=== PATIENT | female | born 1990 | race Caucasian/White ===

== ENCOUNTER 2018-04-18 21:44 | Observation (INO) | payer OTHER ==
[2018-04-18] MEDS ORDERED: Sodium Chloride 0.9% 1000 ML 1,000 ML IV STA (22:12)
[2018-04-18] MEDS ORDERED: MORPHINE SULFATE 4 MG INJ IV ONE (22:12)
[2018-04-18] MEDS ORDERED: Zofran 4 MG/2 ML VIAL IV ONE (22:12)
[2018-04-18] MEDS ORDERED: Zofran 4 MG/2 ML VIAL ONE (22:17)
[2018-04-18] MEDS ORDERED: MORPHINE SULFATE 4 MG INJ ONE (22:17)
[2018-04-18] MEDS ORDERED: Sodium Chloride 0.9% 1000 ML 1,000 ML ONE (22:17)
--- NOTE | 2018-04-18 22:17 | ERPHSYRPT ---
- History of Present Illness Time Seen by Provider: 04/18/18 22:08 Historian: patient Exam Limitations: no limitations Patient Subjective Stated Complaint: right lower abdominal quadrant pain Triage Nursing Assessment: Pt c/o of right lower quadrant pain, pain for past couple of days and today has hurt more and rates the pain an 8/10, tender to palpation, gave 01/09/2018, doesn't appear to be in any distress Physician History: 27-year-old white female arrives with complaint of right lower quadrant pain. She states she began with suprapubic abdominal pain 2 days ago and then today it is moved over to the right side she states she has some nausea some diarrhea she has no vomiting no urinary symptoms. Past medical history includes preeclampsia depression Social history patient admits to tobacco use she denies illicit drug use or alcohol use Timing/Duration: day(s) (2 days) Activities at Onset: none Quality: cramping Abdominal Pain Onset Location: RLQ Pain Radiation: no radiation Severity of Pain-Max: moderate Severity of Pain-Current: moderate Modifying Factors: Improves With: nothing Associated Symptoms: diarrhea, nausea, No back, No chest pain, No diaphoresis, No fever/chills, No fatigue, No headache, No heartburn, No loss of appetite, No neck pain, No rash, No shortness of breath, No syncope, No vomiting, No weakness Previous symptoms: no prior history Allergies/Adverse Reactions: ibuprofen Allergy (Verified 04/18/18 22:06) Home Medications: No Reportable Medications [No Reported Medications] 04/18/18 [History] - Review of Systems Constitutional: No Fever, No Chills Eyes: No Symptoms Ears, Nose, & Throat: No Symptoms Respiratory: No Cough, No Dyspnea Cardiac: No Chest Pain, No Edema, No Syncope Abdominal/Gastrointestinal: Abdominal Pain, Nausea, No Vomiting, No Diarrhea, No Constipation, No Hematemesis, No Hematochezia, No Melena, No Dysphagia, No Appetite Changes Genitourinary Symptoms: No Dysuria Musculoskeletal: No Back Pain, No Neck Pain Skin: No Rash Neurological: No Dizziness, No Focal Weakness, No Sensory Changes Psychological: No Symptoms Endocrine: No Symptoms All Other Systems: Reviewed and Negative - Past Medical History Pertinent Past Medical History: Yes Other Medical History: preeclampsia after giving 3 months ago-01/09/2018 - Past Surgical History Past Surgical History: No - Social History Smoking Status: Current every day smoker How long have you smoked: 7 years Drug Use: none Patient Lives Alone: No - Female History Hx Last Menstrual Period: 11/14/2017 Hx Now: No - Nursing Vital Signs Nursing Vital Signs: Initial Vital Signs Temperature 97.5 F 04/18/18 21:53 Pulse Rate 90 04/18/18 21:53 Blood Pressure 123/89 04/18/18 21:53 O2 Sat by Pulse Oximetry 97 04/18/18 21:53 Pain Scale Pain Intensity 5 - Physical Exam General Appearance: no apparent distress, alert, obese Eye Exam: PERRL/EOMI, eyes nml inspection Ears, Nose, Throat Exam: normal ENT inspection, pharynx normal, moist mucous membranes Neck Exam: normal inspection, non-tender, supple, full range of motion Respiratory Exam: normal breath sounds, lungs clear, No respiratory distress Cardiovascular Exam: regular rate/rhythm, normal heart sounds Gastrointestinal/Abdomen Exam: soft, normal bowel sounds, tenderness (right lower quadrant abdominal tenderness), No distention, No mass, No guarding, No ecchymosis, No pulsatile mass, No rebound, No hernia, No hepatomegaly Back Exam: normal inspection, normal range of motion, No CVA tenderness, No vertebral tenderness Extremity Exam: normal inspection, normal range of motion, pelvis stable Neurologic Exam: alert, oriented x 3, cooperative, cobol developer II-XII nml as tested, normal mood/affect, nml cerebellar function, sensation nml, No motor deficits Skin Exam: normal color, warm, dry SpO2 Interpretation: normal (97%) SpO2: 97 Oxygen Delivery: Room Air - Course Nursing assessment & vital signs reviewed: Yes - CT Exams Abdomen/Pelvis CT Interpretation: Tele-radiologist Report (CT of the abdomen and pelvis: acute appendicitis without abscess) Ordered Tests: Active Orders 24 hr Category Date Time Status Bedrest with BRP/BSC ROUTINE Activity 04/19/18 01:48 Active Call Admit Doctor for Orders ON ADMISSION Care 04/19/18 01:48 Active Code Status Order ROUTINE Care 04/19/18 01:48 Active IV Care Q6H Care 04/19/18 01:48 Active IV Insertion STAT Care 04/18/18 22:[address] in Observation ROUTINE Care 04/19/18 01:48 Active Weight,Daily 0600 Care 04/19/18 01:48 Active NPO Diet 04/19/18 01:48 Active ABDOMEN AND PELVIS W CONTRAST [CT] Stat Exams 04/18/18 22:52 Taken AMYLASE Stat Lab 04/18/18 22:15 Completed CBC W DIFF AM.LAB Lab 04/19/18 04:00 Ordered CBC W DIFF Stat Lab 04/18/18 22:12 Completed CMP AM.LAB Lab 04/19/18 04:00 Ordered CMP Stat Lab 04/18/18 22:15 Completed HCG QUALITATIVE,SERUM Stat Lab 04/18/18 22:15 Completed LIPASE Stat Lab 04/18/18 22:15 Completed UA W/ MICROSCOPIC Stat Lab 04/18/18 22:34 Completed Pulse Oximetry CONTINUOUS RT 04/19/18 01:48 Active Transfer Order Routine Transfer 04/19/18 Completed Medication Summary Generic Name Dose Route Start Last Admin Trade Name Freq PRN Reason Stop Dose Admin Ampicillin Sodium/Sulbactam Sodium 3 gm in 100 mls @ 200 mls/hr 04/19/18 06: 00 Unasyn 3gm / Nacl 100ml IV 05/19/18 05:59 Q6HT SOLA Metronidazole 500 mg in 100 mls @ 200 mls/hr 04/19/18 06:00 Flagyl 500 Mg Ivpb IV 05/19/18 05:59 Q6HT SOLA Sodium Chloride 1,000 mls @ 100 mls/hr 04/19/18 01:48 Sodium Chloride 0.9% 1000 Ml IV 05/19/18 01:47 .Q10H SOLA Morphine Sulfate 4 mg 04/19/18 01:48 Morphine Sulfate 4 Mg Inj IV 04/24/18 01:47 Q4H PRN PRN PAIN Ondansetron HCl 4 mg 04/19/18 01:48 Zofran 4 Mg/2 Ml Vial IV 05/19/18 01:47 Q6H PRN PRN NAUSEA/VOMITING Discontinued Medications Generic Name Dose Route Start Last Admin Trade Name Freq PRN Reason Stop Dose Admin Sodium Chloride 1,000 mls @ 999 mls/hr 04/18/18 22:12 04/19/18 01:09 Sodium Chloride 0.9% 1000 Ml IV 04/18/18 23:12 Infused .Q1H1M STA Infusion Sodium Chloride Confirm 04/18/18 22:17 Sodium Chloride 0.9% 1000 Ml Administered 04/18/18 22:18 Dose 1,000 mls @ ud .ROUTE .STK-MED ONE Metronidazole 500 mg in 100 mls @ 200 mls/hr 04/19/18 00:58 04/19/18 01:42 Flagyl 500 Mg Ivpb IV 04/19/18 01:27 Infused STAT STA Infusion Ampicillin Sodium/Sulbactam Sodium 3 gm in 100 mls @ 200 mls/hr 04/19/18 00: 58 04/19/18 01:42 Unasyn 3gm / Nacl 100ml IV 04/19/18 01:27 200 mls/hr STAT STA 200 mls/hr Administration Metronidazole Confirm 04/19/18 01:02 Flagyl 500 Mg Ivpb Administered 04/19/18 01:03 Dose 500 mg in 100 mls @ ud IV .STK-MED ONE Ampicillin Sodium/Sulbactam Sodium Confirm 04/19/18 01:33 Unasyn 3gm / Nacl 100ml Administered 04/19/18 01:34 Dose 3 gm in 100 mls @ ud .ROUTE .STK-MED ONE Morphine Sulfate 4 mg 04/18/18 22:12 04/18/18 22:21 Morphine Sulfate 4 Mg Inj IV 04/18/18 22:13 4 mg STAT ONE Administration Morphine Sulfate Confirm 04/18/18 22:17 Morphine Sulfate 4 Mg Inj Administered 04/18/18 22:18 Dose 4 mg .ROUTE .STK-MED ONE Ondansetron HCl 4 mg 04/18/18 22:12 04/18/18 22:21 Zofran 4 Mg/2 Ml Vial IV 04/18/18 22:13 4 mg STAT ONE Administration Ondansetron HCl Confirm 04/18/18 22:17 Zofran 4 Mg/2 Ml Vial Administered 04/18/18 22:18 Dose 4 mg .ROUTE .STK-MED ONE Lab/Rad Data: Laboratory Result Diagrams 04/18/18 22:12 04/18/18 22:15 Laboratory Results 04/18/18 04/18/18 04/18/18 Range/Units 22:34 22:15 22:15 WBC (4.0-10.5) K/mm3 RBC (4.1-5.4) M/mm3 Hgb (12.0-16.0) gm/dl Hct (35-47) % MCV (78-100) fl MCH (26-32) pg MCHC (32-36) g/dl RDW (11.5-14.0) % Plt Count (150-450) K/mm3 MPV (6-9.5) fl Gran % (36.0-66.0) % Eos # (Auto) (0-0.5) Absolute Lymphs (auto) (1.0-4.6) Absolute Monos (auto) (0.0-1.3) Lymphocytes % (24.0-44.0) % Monocytes % (0.0-12.0) % Eosinophils % (0.00-5.0) % Basophils % (0.0-0.4) % Absolute Granulocytes (1.4-6.9) Basophils # (0-0.4) Sodium 141 (137-145) mmol/L Potassium 3.8 (3.5-5.1) mmol/L Chloride 106 (98-107) mmol/L Carbon Dioxide 27 (22-30) mmol/L Anion Gap 11.9 (5-15) MEQ/L BUN 13 (7-17) mg/dL Creatinine 0.81 (0.52-1.04) mg/dL Estimated GFR > 60.0 ML/MIN Glucose 99 (74-106) mg/dL Calcium 9.7 (8.4-10.2) mg/dL Total Bilirubin 0.20 (0.2-1.3) mg/dL AST 18 (14-36) U/L ALT 19 (0-35) U/L Alkaline Phosphatase 87 (38-126) U/L Serum Total Protein 7.4 (6.3-8.2) g/dL Albumin 4.2 (3.5-5.0) g/dL Amylase 43 (30-110) U/L Lipase 50 (23-300) U/L Serum , Qual NEGATIVE (Negative) Ur Collection Type VOID Urine Color YELLOW (YELLOW) Urine Appearance SLIGHTLY HAZY (CLEAR) Urine pH 50 (5-6) Ur Specific [place] 1.0154 (1.005-1.025) Urine Protein NEGATIVE (Negative) Urine Ketones NEGATIVE (NEGATIVE) Urine Blood 50 (0-5) Uriel/ul Urine Nitrite NEGATIVE (NEGATIVE) Urine Bilirubin NEGATIVE (NEGATIVE) Urine Urobilinogen NORMAL (0-1) mg/dL Ur Leukocyte Esterase NEGATIVE (NEGATIVE) Urine Microscopic RBC 10-15 (0-2) /HPF Ur Epithelial Cells FEW (FEW) /HPF Urine Culture Reflexed NO (NO) Urine Glucose NEGATIVE (NEGATIVE) mg/dL Specimen Received 04/18/18223404/18/18 Range/Units 22:12 WBC 11.0 H (4.0-10.5) K/mm3 RBC 3.92 L (4.1-5.4) M/mm3 Hgb 11.7 L (12.0-16.0) gm/dl Hct 35.1 (35-47) % MCV 89.5 (78-100) fl MCH 29.8 (26-32) pg MCHC 33.3 (32-36) g/dl RDW 13.0 (11.5-14.0) % Plt Count 337 (150-450) K/mm3 MPV 10.1 H (6-9.5) fl Gran % 71.4 H (36.0-66.0) % Eos # (Auto) 0.43 (0-0.5) Absolute Lymphs (auto) 2.09 (1.0-4.6) Absolute Monos (auto) 0.63 (0.0-1.3) Lymphocytes % 18.9 L (24.0-44.0) % Monocytes % 5.7 (0.0-12.0) % Eosinophils % 3.9 (0.00-5.0) % Basophils % 0.1 (0.0-0.4) % Absolute Granulocytes 7.87 H (1.4-6.9) Basophils # 0.01 (0-0.4) Sodium (137-145) mmol/L Potassium (3.5-5.1) mmol/L Chloride (98-107) mmol/L Carbon Dioxide (22-30) mmol/L Anion Gap (5-15) MEQ/L BUN (7-17) mg/dL Creatinine (0.52-1.04) mg/dL Estimated GFR ML/MIN Glucose (74-106) mg/dL Calcium (8.4-10.2) mg/dL Total Bilirubin (0.2-1.3) mg/dL AST (14-36) U/L ALT (0-35) U/L Alkaline Phosphatase (38-126) U/L Serum Total Protein (6.3-8.2) g/dL Albumin (3.5-5.0) g/dL Amylase (30-110) U/L Lipase (23-300) U/L Serum , Qual (Negative) Ur Collection Type Urine Color (YELLOW) Urine Appearance (CLEAR) Urine pH (5-6) Ur Specific [place] (1.005-1.025) Urine Protein (Negative) Urine Ketones (NEGATIVE) Urine Blood (0-5) Uriel/ul Urine Nitrite (NEGATIVE) Urine Bilirubin (NEGATIVE) Urine Urobilinogen (0-1) mg/dL Ur Leukocyte Esterase (NEGATIVE) Urine Microscopic RBC (0-2) /HPF Ur Epithelial Cells (FEW) /HPF Urine Culture Reflexed (NO) Urine Glucose (NEGATIVE) mg/dL Specimen Received - Progress Progress: improved Progress Note: 04/18/18 22:53 Patient improved with still right lower quadrant abdominal pain. White blood cell count is elevated. Will go ahead and obtain CT abdomen and pelvis to rule out appendicitis. 04/19/18 01:[address] of the abdomen and pelvis is remarkable for acute appendicitis without abscess the appendix is dilated to 11 mm with surrounding edema. I've discussed the patient's case with Dr. Arturo Whalen He requests that I go ahead and place the patient on observation provide IV antibiotics (Unasyn and Flagyl), will provide IV fluids and pain medications keep patient nothing by mouth. Dr. Whalen anticipates the patient will be seen by DR López. - Departure Time of Disposition: 01:02 Departure Disposition: Observation Clinical Impression: Right lower quadrant abdominal pain Acute appendicitis Qualifiers: Acute appendicitis type: unspecified acute appendicitis type Qualified Code(s) : K35.80 - Unspecified acute appendicitis Condition: Fair Critical Care Time: No
[2018-04-18 22:24] LABS: BASOPHIL % 0.1 % (0.0-0.4); Basophil (Absolute #) 0.01 (0-0.4); Eosinophil % 3.9 % (0.00-5.0); Eosinophil (Absolute #) 0.43 (0-0.5); Granulocyte Absolute (ANC) 7.87 (1.4-6.9); Granulocytes % 71.4 % (36.0-66.0); Hematocrit 35.1 % (35-47); Hemoglobin 11.7 gm/dl (12.0-16.0); Lymphocyte (Absolute #) 2.09 (1.0-4.6); Lymphocytes % 18.9 % (24.0-44.0); Mean Cell Volume 89.5 fl (78-100); Mean Corpuscular Hemoglobin 29.8 pg (26-32); Mean Corpuscular Hgb Concent. 33.3 g/dl (32-36); Mean Platelet Volume 10.1 fl (6-9.5); Monocyte (Absolute #) 0.63 (0.0-1.3); Monocytes % 5.7 % (0.0-12.0); Platelet Count 337 K/mm3 (150-450); Red Blood Count 3.92 M/mm3 (4.1-5.4)
[2018-04-18 22:40] LABS: Appearance SLIGHTLY HAZY (CLEAR); Bilirubin NEGATIVE (NEGATIVE); Blood 50 Ery/ul (0-5); Glucose NEGATIVE (NEGATIVE); Ketones NEGATIVE (NEGATIVE); Leukocyte Esterase NEGATIVE (NEGATIVE); Nitrite NEGATIVE (NEGATIVE); Ph 50 (5-6); Protein,Urine Dip NEGATIVE (Negative); Urobilinogen NORMAL mg/dL (0-1)
[2018-04-18 22:42] LABS: ALBUMIN 4.2 g/dL (3.5-5.0); ALKALINE PHOSPHATASE 87 U/L (38-126); AMYLASE 43 U/L (30-110); ANION GAP 11.9 MEQ/L (5-15); BLOOD UREA NITROGEN 13 mg/dL (7-17); CHLORIDE 106 mmol/L (98-107); Calcium 9.7 mg/dL (8.4-10.2); Carbon Dioxide 27 mmol/L (22-30); Creatinine 1 0.81 mg/dL (0.52-1.04); Glucose 99 mg/dL (74-106); LIPASE 50 U/L (23-300); Potassium 3.8 mmol/L (3.5-5.1); SGOT/AST 18 U/L (14-36); SGPT/ALT 19 U/L (0-35); SODIUM 141 mmol/L (137-145); Total Protein 7.4 g/dL (6.3-8.2)
[2018-04-18 22:45] LABS: Epithelial Cells FEW /HPF (FEW)
[2018-04-19] MEDS ORDERED: Unasyn 3GM / NaCl 100ML 3 GM/100 ML IVPB IV STA (00:58)
[2018-04-19] MEDS ORDERED: FLAGYL 500 MG IVPB 500 MG/100 ML BAG IV STA (00:58)
[2018-04-19] MEDS ORDERED: FLAGYL 500 MG IVPB 500 MG/100 ML BAG IV ONE (01:02)
[2018-04-19] MEDS ORDERED: Unasyn 3GM / NaCl 100ML 3 GM/100 ML IVPB ONE (01:33)
[2018-04-19] MEDS ORDERED: Zofran 4 MG/2 ML VIAL IV PRN (01:48)
[2018-04-19] MEDS ORDERED: Zofran 4 MG/2 ML VIAL IV ONE (01:48)
[2018-04-19] MEDS ORDERED: TORAdol 30 mg Injection IV ONE (01:48)
[2018-04-19] MEDS ORDERED: Zemuron 100 MG/10 ML IV ONE (01:48)
[2018-04-19] MEDS ORDERED: Decadron 4 MG INJ IV ONE (01:48)
[2018-04-19] MEDS ORDERED: SUBLIMAZE 100 MCG/2 ML IV ONE (01:48)
[2018-04-19] MEDS ORDERED: Quelicin Fliptop 200 MG/10 ML IV ONE (01:48)
[2018-04-19] MEDS ORDERED: BRIDION 200MG/2ML IV ONE (01:48)
[2018-04-19] MEDS ORDERED: PHENYLEPHRINE HCL IV ONE (01:48)
[2018-04-19] MEDS ORDERED: MORPHINE SULFATE 4 MG INJ IV PRN ×2 (01:48→12:03)
[2018-04-19] MEDS ORDERED: DIPRIVAN 200 MG/20 ML IV ONE (01:48)
[2018-04-19 05:36] LABS: BASOPHIL % 0.2 % (0.0-0.4); Basophil (Absolute #) 0.02 (0-0.4); Eosinophil % 4.8 % (0.00-5.0); Granulocyte Absolute (ANC) 5.07 (1.4-6.9); Granulocytes % 61.4 % (36.0-66.0); Hematocrit 31.6 % (35-47); Hemoglobin 10.4 gm/dl (12.0-16.0); Lymphocyte (Absolute #) 2.25 (1.0-4.6); Lymphocytes % 27.2 % (24.0-44.0); Mean Cell Volume 90.8 fl (78-100); Mean Corpuscular Hgb Concent. 32.9 g/dl (32-36); Mean Platelet Volume 9.5 fl (6-9.5); Monocyte (Absolute #) 0.53 (0.0-1.3); Monocytes % 6.4 % (0.0-12.0); Platelet Count 290 K/mm3 (150-450); Red Blood Count 3.48 M/mm3 (4.1-5.4); White Blood Count 8.3 K/mm3 (4.0-10.5)
[2018-04-19 05:38] LABS: Mean Corpuscular Hemoglobin 29.8 pg (26-32)
[2018-04-19 05:55] LABS: ALBUMIN 3.6 g/dL (3.5-5.0); ALKALINE PHOSPHATASE 78 U/L (38-126); ANION GAP 10.2 MEQ/L (5-15); BLOOD UREA NITROGEN 13 mg/dL (7-17); CHLORIDE 106 mmol/L (98-107); Carbon Dioxide 28 mmol/L (22-30); Creatinine 1 0.83 mg/dL (0.52-1.04); Glucose 97 mg/dL (74-106); Potassium 4.5 mmol/L (3.5-5.1); SGOT/AST 12 U/L (14-36); SGPT/ALT 16 U/L (0-35); SODIUM 140 mmol/L (137-145); Total Protein 6.7 g/dL (6.3-8.2)
[2018-04-19] MEDS: FLAGYL 500 MG IVPB 500 MG/100 ML BAG IV SCH ×3 (06:20→17:30)
[2018-04-19] MEDS: Unasyn 3GM / NaCl 100ML 3 GM/100 ML IVPB IV SCH ×2 (07:01→11:21)
[2018-04-19] MEDS ORDERED: Lactated Ringers 1,000 ML IV ONE ×2 (08:25→08:42)
[2018-04-19] MEDS ORDERED: Sensorcaine 0.25% 10 ML ONE (08:42)
--- NOTE | 2018-04-19 08:44 | XRAY ---
Indication: Right lower quadrant pain. Multiple contiguous axial images obtained through the abdomen and pelvis using 80 cc Isovue 370 contrast only. Comparison: None Lung bases demonstrates mild bibasilar dependent atelectasis. Heart is not enlarged. Noncontrasted stomach and bowel loops appear nonobstructed. Appendix is prominent up to 10 mm in diameter with mild periappendiceal stranding favoring acute appendicitis. No free fluid/air. Spleen is enlarged measuring 13.7 cm in greatest axial dimension. Remaining liver, gallbladder, pancreas, spleen, adrenal glands, kidneys, ureters, bladder, uterus, and aorta appear normal in CT appearance and attenuation. No pathologic retroperitoneal lymphadenopathy. Osseous structures intact with bilateral L5 spondylolysis without spondylolisthesis. Impression: 1. CT findings favoring acute appendicitis. No complications. 2. Incidental splenomegaly and L5 spondylolysis without spondylolisthesis. Comment: Preliminary interpretation was made by [facility]. No critical discrepancy. CT DI 23.68
[2018-04-19] MEDS ORDERED: KEFZOL 1 GM ONE (09:09)
[2018-04-19] MEDS ORDERED: SUBLIMAZE 100 MCG/2 ML ONE (09:57)
[2018-04-19] MEDS ORDERED: DILAUDID 2 MG INJECTION ONE (09:57)
[2018-04-19] MEDS: Sodium Chloride 0.9% 1000 ML 1,000 ML IV SCH ×2 (10:33→11:25)
--- NOTE | 2018-04-19 10:44 | HP ---
CONSULT DATE: 04/19/2018 This patient is seen for Dr. Arturo Whalen who admitted the patient when he was section hand yesterday. HISTORY: The patient is a 27 year-old overweight female who has had four day history of right lower quadrant pain, a little bit of anorexia. She had test that was negative. She had CT scan show distended appendix with concern of acute appendicitis. White blood cell count was 11 last night in the emergency department. Liver function test and lipase unremarkable. CT scan showed distended appendix and inflammation consistent with acute appendicitis. PAST MEDICAL HISTORY: She denies any chronic illnesses. She had preeclampsia that resolved after delivery of her child. She is overweight. Otherwise no chronic heart disease, lung disease or any other chronic illness. PAST SURGICAL HISTORY: She denied any prior abdominal surgeries. MEDICATIONS: She reported that she is not on any medication at home on a regular basis. ALLERGIES: NKDA. FAMILY HISTORY: Negative according to the patient. SOCIAL HISTORY: Half pack per day smoker, denies alcohol abuse. REVIEW OF SYSTEMS: Twelve systems reviewed per admission assessment, pertinent for obesity. No chest pain or palpitations other systems negative or noncontributory as above and per preadmission questionnaire. PHYSICAL EXAMINATION: Temperature 98.2F, pulse 77, blood pressure 116/64. GENERAL: No acute distress. HEENT: Sclera nonicteric. NECK: No JVD. CHEST: Equal excursion, nonlabored breathing. CVS: Regular rate and rhythm. ABDOMEN: Obese, soft, tenderness right lower quadrant and a little bit of guarding. EXTREMITIES: No significant edema. NEURO: Alert, moving extremities grossly symmetrically. IMPRESSION: Acute right lower quadrant pain. CT, physical and history suspicious for acute appendicitis. I feel the patient will benefit from diagnostic laparoscopy, laparoscopic appendectomy possible open. Risks and benefits explained in detail but not limited to bleeding or infection, risk of trocar injury or hernia, small risk bowel, bladder or blood vessel injury, small risk of subsequent intra-abdominal abscess or fistula formation possibly requiring percutaneous or open drainage even at a later date, general risk of anesthesia, deep venous thrombosis, pulmonary embolism or pneumonia, possibility of finding a normal appendix likely remove incidentally and look for other etiology that might need taken care of surgically, general risk of anesthesia, deep venous thrombosis. pulmonary embolism, pneumonia, possibility of need to convert to open procedure, perioperative risk of nausea, vomiting, ileus, obstruction but not limited to as well as possible need to convert to open procedure, possibility this procedure may not improve her symptoms. She understands and agrees to the planned procedure, will proceed with diagnostic laparoscopy laparoscopic appendectomy possible open when OR time available. Again, this patient is seen for Dr. Arturo Whalen who admitted the patient when he was section hand yesterday and had not had time to see the patient.
[2018-04-19] MEDS ORDERED: D5W/0.45NS W/ 20mEq KCl 1000 ML 1,000 ML IV SCH (12:30)
[2018-04-19] MEDS: NORCO 5/325 MG PO PRN ×3 (12:43→20:42)
--- NOTE | 2018-04-19 13:30 | OP ---
SURGERY DATE/TIME: 04/19/2018 09 PREOPERATIVE DIAGNOSIS: Acute right lower quadrant pain, acute appendicitis. POSTOPERATIVE DIAGNOSIS: Acute appendicitis, acute suppurative appendicitis. PROCEDURE: Laparoscopic appendectomy. SURGEON: Dr. Jose Jenkins. ANESTHESIA: General. ESTIMATED BLOOD LOSS: Minimal. INDICATIONS: As noted above. Risks and benefits explained in detail but not limited to and consent obtained. DESCRIPTION OF PROCEDURE AND FINDINGS: The patient was taken to the operating room. General anesthesia induced. Abdomen prepped and draped in usual sterile fashion. After official time out and no disagreement with planned procedure, a transverse incision made at supraumbilical area. Fascia grasped and pulled upwards. Veress needle inserted and tested with saline. Pneumoperitoneum accomplished insufflating from opening pressure of 0 to 15. An 11 mm bladeless port and camera were inserted without difficulty followed by lower midline 5 mm port and a 12 mm right mid abdomen port. Careful inspection. There is just slightly cloudy fluid and a thickened appendix felt to be consistent with acute appendicitis. It is elevated upward. The base of the appendix is then stapled with EndoGIA stapler at the cecum. Sequential reload fired across the residual mesoappendix. Staple line controlled with one brief burst of cautery. Good hemostasis noted. Appendix placed in [place] sac removed and passed off. Port replaced. Copious amount of irrigation accomplished in the pelvis right lower quadrant irrigating until clear. Staple line intact at mesoappendix and cecum. No signs of any active bleeding or leakage. It was felt there was no benefit from drain placement. The fascial defect 12 mm port was closed with puncture closure device with #1 Vicryl. Pneumoperitoneum decompressed. The wound is irrigated out. Skin incision closed with 4-0 Vicryl. Steri-Strips and sterile dressing applied. 0.25% Marcaine local injected along the skin incision fascial defects. The patient tolerated the procedure well. There were no immediate complications. Findings discussed with the family out in the waiting area. This patient was seen for Dr. Whalen who admitted the patient yesterday when he was conductor/engineer.
[2018-04-19] MEDS ORDERED: Sodium Chloride 0.9% 10 ML FLUSH Syringe IV PRN (14:00)
[2018-04-19] MEDS: Sodium Chloride 0.9% 10 ML FLUSH Syringe IV SCH ×2 (14:03→20:42)
[2018-04-19] MEDS: Zosyn 3.375GM/100 Ml D5W 3.375 GM/100 ML IVPB IV SCH (16:32)
[2018-04-20] MEDS: FLAGYL 500 MG IVPB 500 MG/100 ML BAG IV SCH ×3 (00:32→13:22)
[2018-04-20] MEDS: NORCO 5/325 MG PO PRN ×3 (01:10→12:09)
[2018-04-20] MEDS: Zosyn 3.375GM/100 Ml D5W 3.375 GM/100 ML IVPB IV SCH ×3 (01:11→12:02)
[2018-04-20 06:13] LABS: Hematocrit 32.5 % (35-47); Hemoglobin 10.5 gm/dl (12.0-16.0); Mean Cell Volume 91.3 fl (78-100); Mean Corpuscular Hgb Concent. 32.3 g/dl (32-36); Mean Platelet Volume 10.3 fl (6-9.5); Platelet Count 317 K/mm3 (150-450); Red Blood Count 3.56 M/mm3 (4.1-5.4); Red Cell Distribution Width 12.8 % (11.5-14.0); White Blood Count 9.3 K/mm3 (4.0-10.5)
[2018-04-20 06:15] LABS: Mean Corpuscular Hemoglobin 29.4 pg (26-32)
[2018-04-20] MEDS: Sodium Chloride 0.9% 10 ML FLUSH Syringe IV SCH (06:20)
[2018-04-20 15:05] VITALS: BP 132/64; PULSE 79; O2SAT 99
== END 2018-04-20 15:25 | disposition home or self-care (01) ==
LOC: ED 21:44 → MED SURG 04-19 01:47
PROVIDERS: ADMIT Surgery; ATTEND Surgery
DX: K35.80 Unspecified acute appendicitis (principal); Z72.0 Tobacco use
CPT/HCPCS: 36000; 36415; 44970; 74177; 80053; 81000; 82150; 83690; 84703; 85025; 85027; 94250; 94760; 94762; 96360; 96374; 96375; 99285; G0378; 99140; J0295; J0330; J0690; J1100; J1170; J1885; J2270; J2370; J2405; J2543; J2704; J3010; A9270-GY

== ENCOUNTER 2019-07-29 13:04 | Emergency (ER) | payer OTHER ==
[2019-07-29 13:30] VITALS: BP 129/95; PULSE 95; O2SAT 98
--- NOTE | 2019-07-29 13:39 | ERPHSYRPT ---
- History of Present Illness Time Seen by Provider: 07/29/19 13:20 Source: patient Exam Limitations: no limitations Patient Subjective Stated Complaint: states cut 2nd digit left hand with a knife yesterday and today area is painful and swollen. Triage Nursing Assessment: ambulated to room per self. skin w/d, color normal. has slight swelling noted to proximal 2nd digit left hand. small red puncture wound noted. Physician History: 28 y/o right handed white female accidently pierced left index finger 24 hours ago. still with pain today. wanted evaluation. no tylenol, ibuprofen or ice. pts tetanus 2 years ago. Occurred: hours ago (24) Method of Injury: other (accidental) Quality: other (stinging) Severity of Pain-Max: mild Severity of Pain-Current: mild Extremities Pain Location: 2nd finger: left Modifying Factors: Improves With: nothing Associated Symptoms: none Allergies/Adverse Reactions: ibuprofen Allergy (Verified 07/29/19 13:19) Home Medications: No Reportable Medications [No Reported Medications] 07/29/19 [History] Hx Tetanus, Diphtheria Vaccination/Date Given: Yes Hx Influenza Vaccination/Date Given: No Hx Pneumococcal Vaccination/Date Given: No - Review of Systems Constitutional: No Symptoms Eyes: No Symptoms Ears, Nose, & Throat: No Symptoms Respiratory: No Symptoms Cardiac: No Symptoms Abdominal/Gastrointestinal: No Symptoms Genitourinary Symptoms: No Symptoms Musculoskeletal: Injury (left 2nd digit) Skin: No Symptoms, Other (2mm lac left 2nd digit) Neurological: No Symptoms Psychological: No Symptoms Endocrine: No Symptoms Hematologic/Lymphatic: No Symptoms Immunological/Allergic: No Symptoms All Other Systems: Reviewed and Negative - Past Medical History Pertinent Past Medical History: Yes Neurological History: No Pertinent History ENT History: No Pertinent History Cardiac History: No Pertinent History Respiratory History: No Pertinent History Endocrine Medical History: No Pertinent History Musculoskeletal History: No Pertinent History GI Medical History: No Pertinent History History: No Pertinent History Psycho-Social History: No Pertinent History Female Reproductive Disorders: No Pertinent History Other Medical History: preeclampsia during and after giving 3 months ago- - Past Surgical History Past Surgical History: Yes Neuro Surgical History: No Pertinent History Cardiac: No Pertinent History Respiratory: No Pertinent History Gastrointestinal: Appendectomy Genitourinary: No Pertinent History Musculoskeletal: No Pertinent History Female Surgical History: No Pertinent History - Social History Smoking Status: Current every day smoker How long have you smoked: 7 years Exposure to second hand smoke: Yes Drug Use: none Patient Lives Alone: No - Female History Hx Last Menstrual Period: 07/09/19 Hx Now: No - Nursing Vital Signs Nursing Vital Signs: Initial Vital Signs Temperature 97.8 F 07/29/19 13:13 Pulse Rate 95 H 07/29/19 13:13 Respiratory Rate 16 07/29/19 13:13 Blood Pressure 129/95 07/29/19 13:13 O2 Sat by Pulse Oximetry 98 07/29/19 13:13 Pain Scale Pain Intensity 7 - Physical Exam General Appearance: no apparent distress, alert, anxiety Eyes, Ears, Nose, Throat Exam: normal ENT inspection, moist mucous membranes Neck Exam: normal inspection, non-tender, supple, full range of motion Cardiovascular/Respiratory Exam: chest non-tender Abdominal Exam: non-tender Back Exam: normal inspection, normal range of motion, No CVA tenderness, No vertebral tenderness Shoulder Exam: normal inspection, non-tender, no evidence of injury, normal ROM Elbow/Forearm Exam: normal inspection, non-tender, no evidence of injury, normal ROM Wrist Exam: normal inspection, non-tender, no evidence of injury, normal ROM Hand Exam: no evidence of injury, normal ROM, laceration (2mm lac left index finger. no redness, swelling, bleeding or drainage. nv intact. tendons intact) Neuro/Tendon Exam: normal sensation, normal motor functions, normal tendon functions Mental Status Exam: alert, oriented x 3, cooperative Skin Exam: normal color, warm, dry SpO2 Interpretation: normal SpO2: 98 O2 Delivery: Room Air - Course EKG Interpreted by Me: RATE - Progress Progress: unchanged Counseled pt/family regarding: diagnosis, need for follow-up - Departure Departure Disposition: Home Clinical Impression: Finger laceration Condition: Stable Critical Care Time: No Referrals: RITO LANCE MD [Primary Care Provider] - Additional Instructions: keep site clean daily with soap and water. no ointment, lotions, or creams. ice pack 3 times daily for 2 days. tylenol and ibuprofen for pain.
== END 2019-07-29 13:52 | disposition home or self-care (01) ==
LOC: ED 13:04
DX: S61.211A Laceration without foreign body of left index finger without damage to nail, initial encounter (principal); W26.0XXA Contact with knife, initial encounter
CPT/HCPCS: 99283

== ENCOUNTER 2020-03-12 10:44 | Emergency (ER) | payer SELFPAY ==
[2020-03-12 12:09] VITALS: O2SAT 100
[2020-03-12] MEDS ORDERED: Sodium Chloride 0.9% 1000 ML 1,000 ML IV STA (12:09)
[2020-03-12] MEDS ORDERED: Zofran 4 MG/2 ML VIAL IV ONE (12:09)
[2020-03-12] MEDS ORDERED: Zofran 4 MG/2 ML VIAL ONE (12:20)
[2020-03-12] MEDS ORDERED: Sodium Chloride 0.9% 1000 ML 1,000 ML ONE (12:20)
[2020-03-12 12:47] LABS: Absolute Neutrophil Ct (ANC) 4.95 (1.4-6.9); BASOPHIL % 0.1 % (0.0-0.4); Basophil (Absolute #) 0.01 (0-0.4); Eosinophil % 2.8 % (0.00-5.0); Hematocrit 40.9 % (35-47); Hemoglobin 13.4 gm/dl (12.0-16.0); Lymphocyte (Absolute #) 1.49 (1.0-4.6); Lymphocytes % 20.8 % (24.0-44.0); Mean Cell Volume 90.5 fl (78-100); Mean Corpuscular Hemoglobin 29.6 pg (26-32); Mean Corpuscular Hgb Concent. 32.8 g/dl (32-36); Mean Platelet Volume 9.7 fl (7.5-11.0); Monocyte (Absolute #) 0.51 (0.0-1.3); Monocytes % 7.1 % (0.0-12.0); Neutrophil % 69.2 % (36.0-66.0); Platelet Count 366 K/mm3 (150-450); Red Blood Count 4.52 M/mm3 (4.1-5.4); Red Cell Distribution Width 14.2 % (11.5-14.0); White Blood Count 7.2 K/mm3 (4.0-10.5)
[2020-03-12 13:00] LABS: INR 1.1 (0.8-3.0); PROTIME 12.5 SECONDS (9.95-12.35)
[2020-03-12 13:04] LABS: Appearance CLOUDY (CLEAR); Bacteria FEW /HPF (NEGATIVE); Bilirubin NEGATIVE (NEGATIVE); Blood LARGE Ery/ul (0-5); Epithelial Cells RARE /HPF (FEW); Glucose NEGATIVE (NEGATIVE); Ketones NEGATIVE (NEGATIVE); Leukocyte Esterase TRACE (NEGATIVE); Mucus SLIGHT /HPF (NEGATIVE); Nitrite NEGATIVE (NEGATIVE); Protein,Urine Dip 30 (Negative); Specific Gravity 1.025 (1.005-1.025); Urobilinogen NEGATIVE mg/dL (0-1); WBC 26-50 /HPF (0-5)
[2020-03-12 13:07] LABS: ALBUMIN 4.6 g/dL (3.5-5.0); ALKALINE PHOSPHATASE 96 U/L (38-126); AMYLASE 54 U/L (30-110); ANION GAP 11.8 MEQ/L (5-15); BLOOD UREA NITROGEN 16 mg/dL (7-17); CHLORIDE 107 mmol/L (98-107); Calcium 9.7 mg/dL (8.4-10.2); Carbon Dioxide 25 mmol/L (22-30); Creatinine 1 0.73 mg/dL (0.52-1.04); Glucose 93 mg/dL (74-106); LIPASE 49 U/L (23-300); SGOT/AST 23 U/L (14-36); SGPT/ALT 23 U/L (0-35); SODIUM 140 mmol/L (137-145); Total Protein 8.8 g/dL (6.3-8.2)
[2020-03-12 13:10] LABS: Budding Yeast Many /HPF (NEGATIVE); RBC >101 /HPF (0-2)
[2020-03-12 13:11] VITALS: BP 113/76
--- NOTE | 2020-03-12 14:16 | XRAY ---
Indication: Abdomen pain, nausea, vomiting, diarrhea. Multiple contiguous axial images obtained through the abdomen and pelvis using 80 cc Isovue 370 contrast only. Comparison: April 18, 2018. Lung bases again demonstrates minimal bibasilar dependent atelectasis. No infiltrate or effusion. Heart is not enlarged. New small hiatal hernia. Noncontrasted stomach and bowel loops appear nonobstructed. Interval appendectomy and new IUD in situ. No free fluid/air. Spleen remains enlarged today 14 cm in greatest axial dimension. Remaining liver, gallbladder, pancreas, spleen, adrenal glands, kidneys, ureters, bladder, uterus, and aorta appear unremarkable. No pathologic retroperitoneal lymphadenopathy. Osseous structures intact again with bilateral L5 spondylolysis without spondylolisthesis. Impression: 1. New small hiatal hernia and IUD in situ. 2. Again splenomegaly and L5 spondylolysis without spondylolisthesis. 3. Remaining CT abdomen/pelvis with contrast exam is negative.
--- NOTE | 2020-03-12 14:28 | ERPHSYRPT ---
- History of Present Illness Time Seen by Provider: 03/12/20 12:15 Historian: patient Exam Limitations: no limitations Patient Subjective Stated Complaint: pt to ER with complaints of N/V/D since this morning around 0530 and then again at 0830. Triage Nursing Assessment: pt A&Ox4. pt ambulatory. pt appears to be in no distress. Physician History: Patient is a 29-year-old white female presents with abdominal pain present when she awoke this morning. She is on her period however most this pain starts in the epigastric area and radiates down into the vagina vaginal area. She denies chills or sweats she has had some nausea vomiting and diarrhea. She does have her appendix out her gallbladder however is still in. Timing/Duration: today Activities at Onset: sleep Abdominal Pain Onset Location: epigastric Pain Radiation: RLQ, LLQ Severity of Pain-Max: moderate Severity of Pain-Current: moderate Modifying Factors: Improves With: nothing Associated Symptoms: denies symptoms Previous symptoms: no prior history Allergies/Adverse Reactions: ibuprofen Allergy (Verified 03/12/20 12:08) Hx Tetanus, Diphtheria Vaccination/Date Given: Yes Hx Influenza Vaccination/Date Given: Yes Hx Pneumococcal Vaccination/Date Given: No Immunizations Up to Date: Yes Travel Risk - International Travel Have you traveled outside of the country in past 3 weeks: No - Coronavirus Screening Are you exhibiting any of the following symptoms?: Yes Symptoms: Vomiting/Diarrhea Close contact with a COVID-19 positive Pt in past 14-21 Days: No - Review of Systems Constitutional: No Fever, No Chills Eyes: No Symptoms Ears, Nose, & Throat: No Symptoms Respiratory: No Cough, No Dyspnea Cardiac: No Chest Pain, No Edema, No Syncope Abdominal/Gastrointestinal: Abdominal Pain, Nausea, Vomiting, Diarrhea Genitourinary Symptoms: No Dysuria Musculoskeletal: No Back Pain, No Neck Pain Skin: No Rash Neurological: No Dizziness, No Focal Weakness, No Sensory Changes Psychological: No Symptoms Endocrine: No Symptoms All Other Systems: Reviewed and Negative - Past Medical History Pertinent Past Medical History: No Neurological History: No Pertinent History ENT History: No Pertinent History Cardiac History: No Pertinent History Respiratory History: No Pertinent History Endocrine Medical History: No Pertinent History Musculoskeletal History: No Pertinent History GI Medical History: No Pertinent History History: No Pertinent History Psycho-Social History: No Pertinent History Female Reproductive Disorders: No Pertinent History Other Medical History: preeclampsia during and after giving 3 months ago- - Past Surgical History Past Surgical History: Yes Neuro Surgical History: No Pertinent History Cardiac: No Pertinent History Respiratory: No Pertinent History Gastrointestinal: Appendectomy Genitourinary: No Pertinent History Musculoskeletal: No Pertinent History Female Surgical History: Other Other Surgical History: IUD implant - Social History Smoking Status: Current every day smoker How long have you smoked: 7 years Exposure to second hand smoke: Yes Drug Use: none Patient Lives Alone: No - Female History Hx Last Menstrual Period: 03/12/2020 Hx Now: No - Nursing Vital Signs Nursing Vital Signs: Initial Vital Signs Temperature 99.5 F 03/12/20 12:01 Pulse Rate 95 H 03/12/20 12:01 Respiratory Rate 20 03/12/20 12:01 Blood Pressure 134/77 03/12/20 12:01 O2 Sat by Pulse Oximetry 100 03/12/20 12:01 Pain Scale Pain Intensity 4 - Physical Exam General Appearance: mild distress, alert Eye Exam: PERRL/EOMI, eyes nml inspection Ears, Nose, Throat Exam: normal ENT inspection, pharynx normal, moist mucous membranes Neck Exam: normal inspection, non-tender, supple, full range of motion Respiratory Exam: normal breath sounds, lungs clear, No respiratory distress Cardiovascular Exam: regular rate/rhythm, normal heart sounds Gastrointestinal/Abdomen Exam: soft, normal bowel sounds, tenderness, No mass, No guarding, No rebound Back Exam: normal inspection, normal range of motion, No CVA tenderness, No vertebral tenderness Extremity Exam: normal inspection, normal range of motion, pelvis stable Neurologic Exam: alert, oriented x 3, cooperative, normal mood/affect, nml cerebellar function, sensation nml, No motor deficits Skin Exam: normal color, warm, dry SpO2: 100 - Course Nursing assessment & vital signs reviewed: Yes - Radiology Exams Chest X-ray Interpretation: Negative - CT Exams Abdomen/Pelvis CT Interpretation: Negative Ordered Tests: Active Orders 24 hr Category Date Time Status ABDOMEN AND PELVIS W CONTRAST [CT] Stat Exams 03/12/20 12:10 Completed AMYLASE Stat Lab 03/12/20 12:30 Completed AMYLASE Stat Lab 03/12/20 14:09 Ordered BLOOD CULTURE Stat Lab 03/12/20 14:10 Ordered CBC W DIFF Stat Lab 03/12/20 12:30 Completed CBC W DIFF Stat Lab 03/12/20 14:09 Ordered CMP Stat Lab 03/12/20 12:30 Completed CMP Stat Lab 03/12/20 14:09 Ordered CULTURE,URINE Stat Lab 03/12/20 12:14 Received HCG QUALITATIVE,SERUM Stat Lab 03/12/20 Ordered HCG QUALITATIVE,SERUM Stat Lab 03/12/20 12:30 Completed LIPASE Stat Lab 03/12/20 12:30 Completed LIPASE Stat Lab 03/12/20 14:09 Ordered Lactic Acid Stat Lab 03/12/20 12:23 Completed PROTIME WITH INR Stat Lab 03/12/20 12:30 Completed PROTIME WITH INR Stat Lab 03/12/20 14:09 Ordered UA W/RFX UR CULTURE Stat Lab 03/12/20 12:14 Completed UA W/RFX UR CULTURE Stat Lab 03/12/20 14:10 Uncollected Medication Summary Discontinued Medications Generic Name Dose Route Start Last Admin Trade Name Freq PRN Reason Stop Dose Admin Sodium Chloride 1,000 mls @ 999 mls/hr 03/12/20 12:09 03/12/20 13:56 Sodium Chloride 0.9% 1000 Ml IV 03/12/20 13:09 Infused .Q1H1M STA Infusion Sodium Chloride Confirm 03/12/20 12:20 Sodium Chloride 0.9% 1000 Ml Administered 03/12/20 12:21 Dose 1,000 mls @ ud .ROUTE .STK-MED ONE Ondansetron HCl 4 mg 03/12/20 12:09 03/12/20 12:22 Zofran 4 Mg/2 Ml Vial IV 03/12/20 12:10 4 mg STAT ONE Administration Ondansetron HCl Confirm 03/12/20 12:20 Zofran 4 Mg/2 Ml Vial Administered 03/12/20 12:21 Dose 4 mg .ROUTE .STK-MED ONE Lab/Rad Data: Laboratory Result Diagrams 03/12/20 12:30 03/12/20 12:30 Laboratory Results 03/12/20 03/12/20 03/12/20 Range/Units 12:30 12:30 12:30 WBC (4.0-10.5) K/mm3 RBC (4.1-5.4) M/mm3 Hgb (12.0-16.0) gm/dl Hct (35-47) % MCV (78-100) fl MCH (26-32) pg MCHC (32-36) g/dl RDW (11.5-14.0) % Plt Count (150-450) K/mm3 MPV (7.5-11.0) fl Gran % (36.0-66.0) % Eos # (Auto) (0-0.5) Absolute Lymphs (auto) (1.0-4.6) Absolute Monos (auto) (0.0-1.3) Lymphocytes % (24.0-44.0) % Monocytes % (0.0-12.0) % Eosinophils % (0.00-5.0) % Basophils % (0.0-0.4) % Absolute Granulocytes (1.4-6.9) Basophils # (0-0.4) PT 12.5 H (9.95-12.35) SECONDS INR 1.10 (0.8-3.0) Sodium 140 (137-145) mmol/L Potassium 4.0 (3.5-5.1) mmol/L Chloride 107 (98-107) mmol/L Carbon Dioxide 25 (22-30) mmol/L Anion Gap 11.8 (5-15) MEQ/L BUN 16 (7-17) mg/dL Creatinine 0.73 (0.52-1.04) mg/dL Estimated GFR > 60.0 ML/MIN Glucose 93 (74-106) mg/dL Lactic Acid (0.4-2.0) Calcium 9.7 (8.4-10.2) mg/dL Total Bilirubin 0.30 (0.2-1.3) mg/dL AST 23 (14-36) U/L ALT 23 (0-35) U/L Alkaline Phosphatase 96 (38-126) U/L Serum Total Protein 8.8 H (6.3-8.2) g/dL Albumin 4.6 (3.5-5.0) g/dL Amylase 54 (30-110) U/L Lipase 49 (23-300) U/L Serum , Qual NEGATIVE (Negative) Urine Color (YELLOW) Urine Appearance (CLEAR) Urine pH (5-6) Ur Specific [place] (1.005-1.025) Urine Protein (Negative) Urine Ketones (NEGATIVE) Urine Blood (0-5) Uriel/ul Urine Nitrite (NEGATIVE) Urine Bilirubin (NEGATIVE) Urine Urobilinogen (0-1) mg/dL Ur Leukocyte Esterase (NEGATIVE) Urine WBC (Auto) (0-5) /HPF Urine RBC (Auto) (0-2) /HPF U Epithel Cells (Auto) (FEW) /HPF Urine Bacteria (Auto) (NEGATIVE) /HPF Urine Mucus (Auto) (NEGATIVE) /HPF Urine Yeast (Budding) (NEGATIVE) /HPF Urine Culture Reflexed (NO) Urine Glucose (NEGATIVE) mg/dL 03/12/20 03/12/20 03/12/20 Range/Units 12:30 12:23 12:14 WBC 7.2 (4.0-10.5) K/mm3 RBC 4.52 (4.1-5.4) M/mm3 Hgb 13.4 (12.0-16.0) gm/dl Hct 40.9 (35-47) % MCV 90.5 (78-100) fl MCH 29.6 (26-32) pg MCHC 32.8 (32-36) g/dl RDW 14.2 H (11.5-14.0) % Plt Count 366 (150-450) K/mm3 MPV 9.7 (7.5-11.0) fl Gran % 69.2 H (36.0-66.0) % Eos # (Auto) 0.20 (0-0.5) Absolute Lymphs (auto) 1.49 (1.0-4.6) Absolute Monos (auto) 0.51 (0.0-1.3) Lymphocytes % 20.8 L (24.0-44.0) % Monocytes % 7.1 (0.0-12.0) % Eosinophils % 2.8 (0.00-5.0) % Basophils % 0.1 (0.0-0.4) % Absolute Granulocytes 4.95 (1.4-6.9) Basophils # 0.01 (0-0.4) PT (9.95-12.35) SECONDS INR (0.8-3.0) Sodium (137-145) mmol/L Potassium (3.5-5.1) mmol/L Chloride (98-107) mmol/L Carbon Dioxide (22-30) mmol/L Anion Gap (5-15) MEQ/L BUN (7-17) mg/dL Creatinine (0.52-1.04) mg/dL Estimated GFR ML/MIN Glucose (74-106) mg/dL Lactic Acid 0.9 (0.4-2.0) Calcium (8.4-10.2) mg/dL Total Bilirubin (0.2-1.3) mg/dL AST (14-36) U/L ALT (0-35) U/L Alkaline Phosphatase (38-126) U/L Serum Total Protein (6.3-8.2) g/dL Albumin (3.5-5.0) g/dL Amylase (30-110) U/L Lipase (23-300) U/L Serum , Qual (Negative) Urine Color YELLOW (YELLOW) Urine Appearance CLOUDY (CLEAR) Urine pH 5.0 (5-6) Ur Specific [place] 1.025 (1.005-1.025) Urine Protein 30 (Negative) Urine Ketones NEGATIVE (NEGATIVE) Urine Blood LARGE (0-5) Uriel/ul Urine Nitrite NEGATIVE (NEGATIVE) Urine Bilirubin NEGATIVE (NEGATIVE) Urine Urobilinogen NEGATIVE (0-1) mg/dL Ur Leukocyte Esterase TRACE (NEGATIVE) Urine WBC (Auto) 26-50 (0-5) /HPF Urine RBC (Auto) >101 (0-2) /HPF U Epithel Cells (Auto) RARE (FEW) /HPF Urine Bacteria (Auto) FEW (NEGATIVE) /HPF Urine Mucus (Auto) SLIGHT (NEGATIVE) /HPF Urine Yeast (Budding) Many (NEGATIVE) /HPF Urine Culture Reflexed YES (NO) Urine Glucose NEGATIVE (NEGATIVE) mg/dL - Progress Progress: improved - Departure Departure Disposition: Home Clinical Impression: Gastroenteritis Condition: Stable Critical Care Time: No Referrals: RITO LANCE MD [Primary Care Provider] - Instructions: Acute Abdomen (Belly Pain), Adult (DC) Prescriptions: Dicyclomine HCl 20 mg [Bentyl 20 mg] 20 mg PO TID PRN #30 tablet PRN Reason: Pain PANTOPRAZOLE 40 mg Tablet [Protonix 40MG Tablet] 40 mg PO QAM 30 Days #30 tab
[2020-03-12 14:40] VITALS: PULSE 81
--- NOTE | 2020-03-13 08:36 | XRAY ---
Indication: Chest pain. Comparison: None Portable chest demonstrates normal heart, lungs, and bony thorax.
== END 2020-03-12 14:48 | disposition home or self-care (01) ==
LOC: ED 10:44
DX: K52.9 Noninfective gastroenteritis and colitis, unspecified (principal); R10.13 Epigastric pain; Z72.0 Tobacco use
CPT/HCPCS: 36000; 36415; 71045; 74177; 80053; 81001; 81025; 82150; 83605; 83690; 85025; 85610; 87086; 96360; 96374; 99284; J2405